=== PATIENT | male | born 1945 | race Hispanic/Latino ===

== ENCOUNTER 2018-01-18 06:54 | Day surgery (SDC) | payer MEDICARE ==
[2018-01-17 15:07] VITALS: BMI 29.8
[2018-01-18] MEDS ORDERED: Propofol 10 mg/ml Inj (20 ML) ONE ×2 (10:20→10:53)
--- NOTE | 2018-01-18 10:25 | CP.SDSHP ---
Same Day Surgery H & P - History Proposed Procedure: colonoscopy Pre-Op Diagnosis: SCREEN - Previous Medical/Surgical History Cardiac: Hypertension, Arrhythmia Endocrine/Metabolic: Diabetes - Allergies Allergies: Allergies No Known Allergies Allergy (Verified 01/18/18 07:30) - Physical Exam Vital Signs: Vital Signs 01/18/18 01/18/18 07:38 08:06 Temperature 97.5 F L Pulse Rate 63 63 Respiratory 19 Rate Blood Pressure 133/72 O2 Sat by Pulse 98 Oximetry Mental Status: Alert & Oriented x3 Neuro: WNL Heart: WNL Lungs: WNL GI: WNL - {Optional Preform as Required} Abdomen: WNL - Impression Impression: screening Pt. Evaluated Today:Candidate for Anesthesia & Procedure: Yes - Date & Time Date: 01/18/18 Time: 10:15 Short Stay Discharge - Short Stay Discharge Admitting Diagnosis/Reason for Visit: ENCOUNTER FOR SCREENING FOR MALIGNANT NEOPLASM OF Disposition: HOME/ ROUTINE
[2018-01-18 11:54] VITALS: TEMP 97; O2SAT 99
[2018-01-18 12:05] VITALS: BP 150/80; PULSE 80; RESP 20
== END 2018-01-18 12:03 | disposition home or self-care (01) ==
LOC: C.ENDO 06:54
PROVIDERS: ATTEND Internal Medicine Gastroenterology
DX: Z12.11 Encounter for screening for malignant neoplasm of colon (principal); D12.5 Benign neoplasm of sigmoid colon; E11.9 Type 2 diabetes mellitus without complications; I10 Essential (primary) hypertension; K64.8 Other hemorrhoids
CPT/HCPCS: 45380; 82948; 88305; J2704